=== PATIENT | female | born 1950 | race American Indian/Alaskan Native ===

== ENCOUNTER 2019-02-18 16:37 | Inpatient (IN) | payer MEDICARE, OTHER ==
[2019-02-18 17:54] LABS: ANION GAP 13.1; CHLORIDE,CL 98 mmol/L (101-111); SODIUM,NA 134 mmol/L (135-145)
--- NOTE | 2019-02-18 18:08 | EDM.PDOC ---
ED HPI GENERAL MEDICAL PROBLEM - General Chief Complaint: Lower Extremity Injury/Pain Stated Complaint: LEFT FOOT SWOLLEN Time Seen by Provider: 02/18/19 16:50 Source of Information: Reports: Patient, Family, RN, RN Notes Reviewed History Limitations: Reports: No Limitations - History of Present Illness INITIAL COMMENTS - FREE TEXT/NARRATIVE: patient presents to ER with family with complaint of swelling, redness, pain to the left lower leg from the knee to the toes. Patient states this has been progressing over the past 2 days. Patient states she is diabetic and has diabetic ulcers on the foot and legs. She states she has been doctoring for these, states she has been told that the ulcers are from stress. Patient denies any fever or chills. States she has had increased difficulty walking with the swelling and the pain of the foot and the leg. Onset: Today, Sudden Duration: Constant, Getting Worse Location: Reports: Lower Extremity, Left Left Foot Pain Score (Numeric/FACES): 5 - Related Data Allergies Allergy/AdvReac Type Severity Reaction Status Date / Time No Known Allergies Allergy Verified 11/17/15 12:49 Home Meds: Home Meds Aspirin [Adult Low Dose Aspirin EC] 81 mg PO DAILY 05/31/17 [History] Dextrose [Glucose] 4 tab PO ASDIRECTED PRN 05/31/17 [History] Lisinopril 5 mg PO DAILY 05/31/17 [History] Saxagliptin HCl [Onglyza] 5 mg PO DAILY 05/31/17 [History] Simvastatin [Zocor] 20 mg PO BEDTIME 05/31/17 [History] metFORMIN HCl [Metformin HCl] 1,000 mg PO BID 05/31/17 [History] Past Medical History HEENT History: Reports: None Cardiovascular History: Reports: High Cholesterol, Hypertension Respiratory History: Reports: None Gastrointestinal History: Reports: None Genitourinary History: Reports: None 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 Musculoskeletal History: Reports: Arthritis Neurological History: Reports: None Psychiatric History: Reports: None Endocrine/Metabolic History: Reports: Diabetes, Type II Hematologic History: Reports: None Immunologic History: Reports: None Oncologic (Cancer) History: Reports: None Dermatologic History: Reports: None - Infectious Disease History Infectious Disease History: Reports: Chicken Pox - Past Surgical History Head Surgeries/Procedures: Reports: None Musculoskeletal Surgical History: Reports: Carpal Tunnel Social & Family History - Tobacco Use Smoking Status *Q: Current Every Day Smoker Years of Tobacco use: 39 Packs/Tins Daily: 0.2 Second Hand Smoke Exposure: Yes - Caffeine Use Caffeine Use: Reports: Coffee - Recreational Drug Use Recreational Drug Use: No Review of Systems - Review of Systems Review Of Systems: Comprehensive ROS is negative, except as noted in HPI. ED EXAM, GENERAL - Physical Exam Exam: See Below Exam Limited By: No Limitations General Appearance: Alert, WD/WN, No Apparent Distress Eye Exam: Bilateral Eye: EOMI, Normal Inspection Ears: Normal External Exam, Hearing Grossly Normal Nose: Normal Inspection Throat/Mouth: Normal Inspection, Normal Voice, No Airway Compromise Head: Atraumatic, Normocephalic Neck: Normal Inspection, Supple, Non-Tender, Full Range of Motion Respiratory/Chest: No Respiratory Distress, No Accessory Muscle Use, Chest Non- Tender, Decreased Breath Sounds Cardiovascular: Normal Peripheral Pulses, Regular Rate, Rhythm, No Gallop, No JVD, No Murmur, No Rub Peripheral Pulses: 1+: Dorsalis Pedis (L), 2+: Radial (L), Radial (R), Dorsalis Pedis (R) GI/Abdominal: Normal Bowel Sounds, Soft, Non-Tender (Female) Exam: Deferred Rectal (Female) Exam: Deferred Back Exam: Normal Inspection, Decreased Range of Motion Extremities: Pedal Edema (eft foot), Joint Swelling (left ankle), Leg Pain ( left lower leg from knee to the toes), Limited Range of Motion (The lower leg), Increased Warmth (left lower leg), Redness (left lower leg) Neurological: Alert, Oriented, CN II-XII Intact, Normal Cognition Psychiatric: Normal Affect, Normal Mood Skin Exam: Warm, Erythema (left lower leg) Lymphatic: No Adenopathy Course - Vital Signs Last Recorded V/S: Last Vital Signs Temp 97.5 F 02/18/19 16:40 Pulse 73 02/18/19 16:40 Resp 18 02/18/19 16:40 BP 131/64 02/18/19 16:40 Pulse Ox 97 02/18/19 16:40 - Orders/Labs/Meds Orders: Active Orders 24 hr Category Date Time Status CULTURE BLOOD [BC] Stat Lab 02/18/19 17:22 Received CULTURE BLOOD [BC] Stat Lab 02/18/19 17:28 Received Blood Culture x2 Reflex Set [OM.PC] Stat Oth 02/18/19 17:12 Ordered Labs: Laboratory Tests 02/18/19 02/18/19 02/18/19 Range/Units 17:28 17:28 17:28 WBC 11.4 H (5.0-10.0) 10^3/uL RBC 4.96 (4.2-5.4) 10^6/uL Hgb 14.3 (12.0-16.0) g/dL Hct 42.1 (37.0-47.0) % MCV 84.9 (80-100) fL MCH 28.8 (27.0-34.0) pg MCHC 34.0 (33.0-35.0) g/dL Plt Count 235 (150-450) 10^3/uL Neut % (Auto) 74.9 (42.2-75.2) % Lymph % (Auto) 13.9 L (20.5-50.1) % [place] % (Auto) 10.5 H (2-8) % Eos % (Auto) 0.4 L (1.0-3.0) % Baso % (Auto) 0.3 (0.0-1.0) % Sodium 134 L (135-145) mmol/L Potassium 3.1 L (3.6-5.0) mmol/L Chloride 98 L (101-111) mmol/L Carbon Dioxide 26.0 (21.0-31.0) mmol/L Anion Gap 13.1 BUN 13 (7-18) mg/dL Creatinine 0.7 (0.6-1.3) mg/dL Est Cr Clr Drug Dosing TNP Estimated GFR (MDRD) > 60 BUN/Creatinine Ratio 18.57 Glucose 125 H (74-105) mg/dL Lactic Acid 1.2 (0.5-2.2) mmol/L Calcium 8.9 (8.4-10.2) mg/dl Total Bilirubin 0.7 (0.2-1.0) mg/dL AST 9 L (10-42) IU/L ALT 10 (10-60) IU/L Alkaline Phosphatase 56 (42-121) IU/L Total Protein 7.7 (6.7-8.2) g/dl Albumin 3.5 (3.2-5.5) g/dl Globulin 4.2 Albumin/Globulin Ratio 0.83 - Radiology Interpretation Free Text/Narrative:: left lower leg and foot x-rays: FINDINGS: Bones/joints: The bones are intact and normal in appearance. There is no evidence of acute or healing fracture. There is no bone destruction or periosteal reaction. There is moderately advanced osteoarthritis in the knee joint, especially in the medial and patellofemoral compartments. No knee joint effusion is identified. Soft tissues: There is diffuse soft tissue edema. No soft tissue gas or radiopaque foreign body is seen. There are tiny dystrophic calcifications in the soft tissues anterior to the tibia. IMPRESSION: 1. Diffuse soft tissue edema without evidence of soft tissue gas. No fracture or osteomyelitis. 2. Moderately advanced osteoarthritis of the left knee joint. Thank you for allowing us to participate in the care of your patient. Dictated and Authenticated by: Helga Huitron MD 02/18/2019 6:07 PM Central Time ([place] & [place]) FINDINGS: Bones/joints: The bones appear intact. There is no evidence of bone destruction or periosteal reaction. No fractures are identified. There is mild to moderate osteoarthritis of the 1st MTP joint with joint space narrowing and proliferative osteophyte formation. There are large plantar and posterior calcaneal spurs. Soft tissues: There is diffuse soft tissue edema. No soft tissue gas or radiopaque foreign body is identified. IMPRESSION: Diffuse soft tissue swelling. No evidence of fracture or osteomyelitis. Thank you for allowing us to participate in the care of your patient. Dictated and Authenticated by: Helga Huitron MD 02/18/2019 6:08 PM Central Time ([place] & [place]) See radiologist's report - Re-Assessments/Exams Free Text/Narrative Re-Assessment/Exam: 02/18/19 18:15 Patient case discussed with Dr. Bates who agreed to accept patient for inpatient admission. Departure - Departure Time of Disposition: 18:16 Disposition: Admitted As Inpatient 65 Condition: Fair Clinical Impression: Cellulitis Qualifiers: Site of cellulitis: extremity Site of cellulitis of extremity: lower extremity Laterality: left Qualified Code(s): L03.116 - Cellulitis of left lower limb - Discharge Information *PRESCRIPTION DRUG MONITORING PROGRAM REVIEWED*: No *COPY OF PRESCRIPTION DRUG MONITORING REPORT IN PATIENT JOSEPH: No Forms: ED Department Discharge Sepsis Event Note - Evaluation Sepsis Screening Result: No Definite Risk - Focused Exam Vital Signs: Vital Signs Temp Pulse Resp BP Pulse Ox 02/18/19 16:40 97.5 F 73 18 131/64 97 Date Exam was Performed: 02/18/19 Time Exam was Performed: 18:15 - My Orders Last 24 Hours: My Active Orders 02/18/19 17:12 Blood Culture x2 Reflex Set [OM.PC] Stat 02/18/19 17:22 CULTURE BLOOD [BC] Stat 02/18/19 17:28 CULTURE BLOOD [BC] Stat - Assessment/Plan Last 24 Hours: My Active Orders 02/18/19 17:12 Blood Culture x2 Reflex Set [OM.PC] Stat 02/18/19 17:22 CULTURE BLOOD [BC] Stat 02/18/19 17:28 CULTURE BLOOD [BC] Stat
--- NOTE | 2019-02-18 18:35 | PCM.HP ---
H&P History of Present Illness - General Date of Service: 02/18/19 Admit Problem/Dx: Admitted with: Left LE cellulitis Source of Information: Patient, Old Records History Limitations: Reports: No Limitations - History of Present Illness Initial Comments - Free Text/Narative: This is a 68 Y/O F with past Medical history of Diabetes II ( non-insulin Dependent), Hypertension, Dyslipidemia came to ER with ER with family with complaint of swelling, redness, pain to the left lower leg from the knee to the toes. Patient states this has been progressing over the past 2 days. Patient states she is diabetic and has diabetic ulcers on the foot and legs. Patient denies any fever or chills, dysuria. States she has had increased difficulty walking with the swelling and the pain of the foot and the leg. She had X-ray of her Left LE and has no sign of osteomyelitis or any abscess. She will be admitted for Cellulitis of Left LE Onset of Symptoms: Reports: Gradual Duration of Symptoms: Reports: Day(s): Location: Reports: Lower Extremity, Left Left Foot Pain Score (Numeric/FACES): 5 - Related Data Allergies/Adverse Reactions: Allergies Allergy/AdvReac Type Severity Reaction Status Date / Time No Known Allergies Allergy Verified 02/18/19 18:41 Home Medications: Home Meds Aspirin [Adult Low Dose Aspirin EC] 81 mg PO DAILY 05/31/17 [History] Dextrose [Glucose] 4 tab PO ASDIRECTED PRN 05/31/17 [History] Lisinopril 5 mg PO DAILY 05/31/17 [History] Saxagliptin HCl [Onglyza] 5 mg PO DAILY 05/31/17 [History] Simvastatin [Zocor] 20 mg PO BEDTIME 05/31/17 [History] metFORMIN HCl [Metformin HCl] 1,000 mg PO BID 05/31/17 [History] Acetaminophen [Pain Relief] 975 mg PO DAILY PRN 02/18/19 [History] Past Medical History HEENT History: Reports: None Cardiovascular History: Reports: High Cholesterol, Hypertension Respiratory History: Reports: None Gastrointestinal History: Reports: None Genitourinary History: Reports: None 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 Musculoskeletal History: Reports: Arthritis Neurological History: Reports: None Psychiatric History: Reports: None Endocrine/Metabolic History: Reports: Diabetes, Type II Hematologic History: Reports: None Immunologic History: Reports: None Oncologic (Cancer) History: Reports: None Dermatologic History: Reports: None - Infectious Disease History Infectious Disease History: Reports: Chicken Pox - Past Surgical History Head Surgeries/Procedures: Reports: None Musculoskeletal Surgical History: Reports: Carpal Tunnel Social & Family History - Tobacco Use Smoking Status *Q: Current Every Day Smoker Years of Tobacco use: 39 Packs/Tins Daily: 0.2 Second Hand Smoke Exposure: Yes - Caffeine Use Caffeine Use: Reports: Coffee - Recreational Drug Use Recreational Drug Use: No H&P Review of Systems - Review of Systems: Review Of Systems: See Below General: Denies: Fever, Chills, Weakness, Night Sweats, Weight Loss HEENT: Denies: Dysphasia, Headaches, Sinus Congestion, Sore Throat, Visual Changes Pulmonary: Denies: Shortness of Breath, Wheezing, Cough, Sputum Cardiovascular: Denies: Chest Pain, Edema, Lightheadedness Gastrointestinal: Denies: Abdominal Pain, Diarrhea, Nausea, Vomiting Genitourinary: Denies: Dysuria, Burning, Urgency, Flank Pain Musculoskeletal: Reports: Leg Pain (left), Foot Pain (left). Denies: Neck Pain , Shoulder Pain, Back Pain Skin: Reports: Erythema, Change in Color. Denies: Cyanosis, Jaundice, Bruising , Pruritis, Rash Psychiatric: Denies: Confusion, Anxiety, Agitation Neurological: Denies: Confusion, Dizziness, Tremors Hematologic/Lymphatic: Reports: No Symptoms Immunologic: Reports: No Symptoms Exam - Exam Exam: See Below - Vital Signs Vital Signs: Last Vital Signs Temp 36.4 C 02/18/19 16:40 Pulse 73 02/18/19 16:40 Resp 18 02/18/19 16:40 BP 131/64 02/18/19 16:40 Pulse Ox 97 02/18/19 16:40 - Exam Quality Assessment: DVT Prophylaxis. No: Supplemental Oxygen, Central Line/PICC , Urinary Catheter General: Alert, Oriented, Cooperative HEENT: Conjunctiva Clear, EOMI, Hearing Intact, Mucosa Moist & [place] Neck: Full Range of Motion. No: Lymphadenopathy, Thyromegaly Lungs: Clear to Auscultation, Normal Respiratory Effort. No: Crackles, Wheezing Cardiovascular: Regular Rate, Regular Rhythm, Normal S1, Normal S2 GI/Abdominal Exam: Normal Bowel Sounds, Soft, Non-Tender, No Organomegaly. No: Rigid, Rebound (Female) Exam: Deferred Rectal (Female) Exam: Deferred Back Exam: Normal Inspection Extremities: Normal Inspection, No Pedal Edema, Increased Warmth (to left LE ), Redness (Left LE) Skin: Warm, Dry, Intact Neurological: Cranial Nerves Intact, Reflexes Equal Bilateral Neuro Extensive - Mental Status: Alert, Oriented x3, Normal Mood/Affect, Normal Cognition, Memory Intact Neuro Extensive - Motor, Sensory, Reflexes: CN II-XII Intact Psychiatric: Alert, Normal Affect, Normal Mood - Patient Data Lab Results Last 24 hrs: Laboratory Results - last 24 hr 02/18/19 02/18/19 02/18/19 Range/Units 17:28 17:28 17:28 WBC 11.4 H (5.0-10.0) 10^3/uL RBC 4.96 (4.2-5.4) 10^6/uL Hgb 14.3 (12.0-16.0) g/dL Hct 42.1 (37.0-47.0) % MCV 84.9 (80-100) fL MCH 28.8 (27.0-34.0) pg MCHC 34.0 (33.0-35.0) g/dL Plt Count 235 (150-450) 10^3/uL Neut % (Auto) 74.9 (42.2-75.2) % Lymph % (Auto) 13.9 L (20.5-50.1) % [place] % (Auto) 10.5 H (2-8) % Eos % (Auto) 0.4 L (1.0-3.0) % Baso % (Auto) 0.3 (0.0-1.0) % Sodium 134 L (135-145) mmol/L Potassium 3.1 L (3.6-5.0) mmol/L Chloride 98 L (101-111) mmol/L Carbon Dioxide 26.0 (21.0-31.0) mmol/L Anion Gap 13.1 BUN 13 (7-18) mg/dL Creatinine 0.7 (0.6-1.3) mg/dL Est Cr Clr Drug Dosing TNP Estimated GFR (MDRD) > 60 BUN/Creatinine Ratio 18.57 Glucose 125 H (74-105) mg/dL Lactic Acid 1.2 (0.5-2.2) mmol/L Calcium 8.9 (8.4-10.2) mg/dl Total Bilirubin 0.7 (0.2-1.0) mg/dL AST 9 L (10-42) IU/L ALT 10 (10-60) IU/L Alkaline Phosphatase 56 (42-121) IU/L Total Protein 7.7 (6.7-8.2) g/dl Albumin 3.5 (3.2-5.5) g/dl Globulin 4.2 Albumin/Globulin Ratio 0.83 Result Diagrams: 02/18/19 17:28 02/18/19 17:28 - Problem List (1) Diabetes SNOMED Code(s): 43121901 ICD Code: E11.9 - TYPE 2 DIABETES MELLITUS WITHOUT COMPLICATIONS Status: Acute Current Visit: Yes (2) Hypertension SNOMED Code(s): 34376254 ICD Code: I10 - ESSENTIAL (PRIMARY) HYPERTENSION Status: Acute Current Visit: Yes (3) Cellulitis SNOMED Code(s): 654826135 ICD Code: L03.90 - CELLULITIS, UNSPECIFIED Status: Acute Current Visit: No Problem List Initiated/Reviewed/Updated: Yes Orders Last 24hrs: Active Orders 24 hr Category Date Time Status CULTURE BLOOD [BC] Stat Lab 02/18/19 17:22 Received CULTURE BLOOD [BC] Stat Lab 02/18/19 17:28 Received Blood Culture x2 Reflex Set [OM.PC] Stat Oth 02/18/19 17:12 Ordered Assessment/Plan Comment:: This is a 68 Y/O F with past Medical history of Diabetes II ( non-insulin Dependent), Hypertension, Dyslipidemia came to ER with ER with family with complaint of swelling, redness, pain to the left lower leg from the knee to the toes. Patient states this has been progressing over the past 2 days. Patient states she is diabetic and has diabetic ulcers on the foot and legs. Patient denies any fever or chills, dysuria. States she has had increased difficulty walking with the swelling and the pain of the foot and the leg. She had X-ray of her Left LE and has no sign of osteomyelitis or any abscess. She will be admitted for Cellulitis of Left LE Impression and Plan: 1. Left LE cellulitis: Pt presented with erythema and pain of left LE ( pi is daibetic) -Will start her on IV Zosyn and IV Vancomycin -Consult pharmacy to dose Vancomycin -CBC in AM 2. Hypertension: Will continue Lisinopril at 5 mg daily 3. Diabetes II ( Non-Insulin Dependent): She is on metformin at 100 mg BID and Saxagliptin at 5 mg daily -Will continue BS cheack 4 times a day -Will cover with sliding Insulin 4. Dyslipidemia: Continue Simvastatin at 20 mg daily DVT prophylaxis: Start Enoxaparin Code Status: Discussed with Pt and she is: DNR/DNI
[2019-02-18] MEDS ORDERED: Docusate Sodium 100 MG Cap PO PRN (18:54)
[2019-02-18] MEDS ORDERED: DEXTROSE PO PRN (18:59)
[2019-02-18] MEDS ORDERED: [UNRECOGNIZED DRUG - OTHER] PO PRN (18:59)
[2019-02-18] MEDS ORDERED: Acetaminophen 325 MG Tab PO PRN (18:59)
[2019-02-18] MEDS ORDERED: Piperacillin/Tazobactam 3.375 GM in Sodium Chloride 0.9% 100 ML IV SCH (19:15)
[2019-02-18] MEDS ORDERED: Insulin NPH HUM/REG Insulin HM 100 UNIT/ML 3 ML Vial SQ ONE (19:26)
[2019-02-18] MEDS: Enoxaparin 40 MG/0.4 ML Syringe SUBCUT SCH (21:00)
[2019-02-18] MEDS ORDERED: Insulin Isophane NPH, Human 100 Units/ML 3 ML Vial SQ SCH ×2 (21:00)
[2019-02-18] MEDS: Simvastatin 10 MG Tab PO SCH (21:01)
[2019-02-18] MEDS: Insulin Lispro 100 Units/ML 3 ML Vial SUBCUT SCH (22:16)
[2019-02-19] MEDS: Piperacillin/Tazobactam 3.375 GM in Sodium Chloride 0.9% 100 ML IV SCH ×4 (02:06→20:04)
[2019-02-19 07:05] LABS: ANION GAP 13.1; CHLORIDE,CL 100 mmol/L (101-111); SODIUM,NA 134 mmol/L (135-145)
[2019-02-19] MEDS: Insulin Lispro 100 Units/ML 3 ML Vial SUBCUT SCH ×4 (08:09→21:12)
[2019-02-19] MEDS: metFORMIN 500 MG Tab PO SCH ×2 (08:25→17:23)
[2019-02-19] MEDS: Lisinopril 5 MG Tab PO SCH (08:25)
[2019-02-19] MEDS: Aspirin 81 MG Tab.EC PO SCH (08:26)
[2019-02-19] MEDS ORDERED: Potassium Chloride 10 MEQ Tab.ER PO ONE (09:13)
--- NOTE | 2019-02-19 10:47 | PCM.PN ---
- General Info Date of Service: 02/19/19 Admission Dx/Problem (Free Text): Admitted with: Left LE cellulitis , weakness and left LE Pain Subjective Update: Pt was seen in room today doing well, No nausea or vomiting, LE pain is much better and warmth and redness to Left LE is improving. Her appetite is good and has no increased shortness of breath Functional Status: Reports: Pain Controlled, Tolerating Diet, Ambulating, Urinating - Review of Systems General: Reports: Weakness, Appetite (good). Denies: Fever, Chills HEENT: Denies: Headaches, Sinus Congestion, Sore Throat, Rhinitis, Visual Changes Pulmonary: Denies: Shortness of Breath, Cough, Sputum, Wheezing Cardiovascular: Denies: Chest Pain, Dyspnea on Exertion, Edema, Lightheadedness Gastrointestinal: Denies: Abdominal Pain, Diarrhea, Nausea, Vomiting Genitourinary: Denies: Dysuria, Frequency, Burning, Urgency, Flank Pain Musculoskeletal: Reports: Leg Pain. Denies: Neck Pain, Shoulder Pain, Joint Swelling Skin: Denies: Cyanosis, Jaundice, Bruising, Rash Neurological: Reports: No Symptoms Psychiatric: Reports: No Symptoms - Patient Data Vitals - Most Recent: Last Vital Signs Temp 37.4 C 02/19/19 08:00 Pulse 81 02/19/19 08:00 Resp 20 02/19/19 08:00 BP 141/69 H 02/19/19 08:25 Pulse Ox 97 02/19/19 08:00 Weight - Most Recent: 72.575 kg I&O - Last 24 Hours: Intake & Output 02/18/19 02/19/19 02/19/19 22:59 06:59 14:59 Intake Total 334 897 92 Output Total 300 Balance 334 597 92 Lab Results Last 24 Hours: Laboratory Results - last 24 hr 02/18/19 02/18/19 02/18/19 Range/Units 17:28 17:28 17:28 WBC 11.4 H (5.0-10.0) 10^3/uL RBC 4.96 (4.2-5.4) 10^6/uL Hgb 14.3 (12.0-16.0) g/dL Hct 42.1 (37.0-47.0) % MCV 84.9 (80-100) fL MCH 28.8 (27.0-34.0) pg MCHC 34.0 (33.0-35.0) g/dL Plt Count 235 (150-450) 10^3/uL Neut % (Auto) 74.9 (42.2-75.2) % Lymph % (Auto) 13.9 L (20.5-50.1) % [place] % (Auto) 10.5 H (2-8) % Eos % (Auto) 0.4 L (1.0-3.0) % Baso % (Auto) 0.3 (0.0-1.0) % Sodium 134 L (135-145) mmol/L Potassium 3.1 L (3.6-5.0) mmol/L Chloride 98 L (101-111) mmol/L Carbon Dioxide 26.0 (21.0-31.0) mmol/L Anion Gap 13.1 BUN 13 (7-18) mg/dL Creatinine 0.7 (0.6-1.3) mg/dL Est Cr Clr Drug Dosing TNP Estimated GFR (MDRD) > 60 BUN/Creatinine Ratio 18.57 Glucose 125 H (74-105) mg/dL POC Glucose (70-105) mg/dl Lactic Acid 1.2 (0.5-2.2) mmol/L Calcium 8.9 (8.4-10.2) mg/dl Total Bilirubin 0.7 (0.2-1.0) mg/dL AST 9 L (10-42) IU/L ALT 10 (10-60) IU/L Alkaline Phosphatase 56 (42-121) IU/L Total Protein 7.7 (6.7-8.2) g/dl Albumin 3.5 (3.2-5.5) g/dl Globulin 4.2 Albumin/Globulin Ratio 0.83 02/18/19 02/19/19 02/19/19 Range/Units 21:13 06:25 07:59 WBC (5.0-10.0) 10^3/uL RBC (4.2-5.4) 10^6/uL Hgb (12.0-16.0) g/dL Hct (37.0-47.0) % MCV (80-100) fL MCH (27.0-34.0) pg MCHC (33.0-35.0) g/dL Plt Count (150-450) 10^3/uL Neut % (Auto) (42.2-75.2) % Lymph % (Auto) (20.5-50.1) % [place] % (Auto) (2-8) % Eos % (Auto) (1.0-3.0) % Baso % (Auto) (0.0-1.0) % Sodium 134 L (135-145) mmol/L Potassium 3.1 L (3.6-5.0) mmol/L Chloride 100 L (101-111) mmol/L Carbon Dioxide 24.0 (21.0-31.0) mmol/L Anion Gap 13.1 BUN 11 (7-18) mg/dL Creatinine 0.7 (0.6-1.3) mg/dL Est Cr Clr Drug Dosing 65.50 Estimated GFR (MDRD) > 60 BUN/Creatinine Ratio Glucose 149 H (74-105) mg/dL POC Glucose 149 H 145 H (70-105) mg/dl Lactic Acid (0.5-2.2) mmol/L Calcium 8.5 (8.4-10.2) mg/dl Total Bilirubin (0.2-1.0) mg/dL AST (10-42) IU/L ALT (10-60) IU/L Alkaline Phosphatase (42-121) IU/L Total Protein (6.7-8.2) g/dl Albumin (3.2-5.5) g/dl Globulin Albumin/Globulin Ratio Med Orders - Current: Current Medications Acetaminophen (Tylenol) 650 mg PO Q4H PRN PRN Reason: Pain (mild 1-3 )/fever Acetaminophen (Tylenol) 975 mg PO DAILY PRN PRN Reason: Pain Aspirin (Halfprin) 81 mg PO DAILY [facility] Last Admin: 02/19/19 08:26 Dose: 81 mg Docusate Sodium (Colace) 100 mg PO DAILY PRN PRN Reason: Constipation Enoxaparin Sodium (Lovenox) 40 mg SUBCUT BEDTIME [facility] Last Admin: 02/18/19 21:00 Dose: 40 mg Vancomycin HCl 1 gm/ Premix 200 mls @ 133.333 mls/hr IV Q24H [facility] Last Admin: 02/18/19 20:59 Dose: 133.333 mls/hr Piperacillin Sod/Tazobactam (Sod 3.375 gm/ Sodium Chloride) 100 mls @ 200 mls/ hr IV Q6H [facility] Last Infusion: 02/19/19 09:30 Dose: Infused Insulin Human Lispro (Humalog) 0 unit SUBCUT WITHMEALSANDBED [facility]; Protocol Last Admin: 02/19/19 08:09 Dose: Not Given Lisinopril (Prinivil) 5 mg PO DAILY [facility] Last Admin: 02/19/19 08:25 Dose: 5 mg Metformin HCl (Glucophage) 1,000 mg PO BIDMEALS [facility] Last Admin: 02/19/19 08:25 Dose: 1,000 mg Non-Formulary Medication (Dextrose [Glucose]) 4 tab PO ASDIRECTED PRN PRN Reason: Blood Glucose Non-Formulary Medication (Saxagliptin Hcl [Onglyza]) 5 mg PO DAILY [facility] Simvastatin (Zocor) 20 mg PO BEDTIME [facility] Last Admin: 02/18/19 21:01 Dose: Not Given Vancomycin HCl (Pharmacy To Dose - Vancomycin) 1 dose .XX ASDIRECTED [facility] Discontinued Medications Piperacillin Sod/Tazobactam (Sod 3.375 gm/ Sodium Chloride) 100 mls @ 200 mls/ hr IV Q6H [facility] Last Admin: 02/18/19 19:34 Dose: 200 mls/hr Insulin Human NPH (Humulin N) 1 unit SQ QID [facility]; Protocol Insulin Human NPH (Humulin N) 0 unit SQ QIDACANDBED [facility]; Protocol Insulin NPH Beef/Pork (Humulin 70-30) 0 unit SQ QIDACANDBED ONE; Protocol Stop: 02/18/19 19:27 Last Admin: 02/18/19 19:59 Dose: Not Given Potassium Chloride (Klor-Con 10) 40 meq PO ONETIME ONE Stop: 02/19/19 09:14 Last Admin: 02/19/19 09:28 Dose: 40 meq - Exam Quality Assessment: DVT Prophylaxis. No: Supplemental Oxygen, Urine Catheter General: Alert, Oriented, Cooperative, No Acute Distress HEENT: Pupils Equal, Pupils Reactive, Mucous Membr. Moist/[place] Neck: No JVD, No Thyromegaly. No: Lymphadenopathy Lungs: Clear to Auscultation, Normal Respiratory Effort. No: Crackles, Wheezing Cardiovascular: Regular Rate, Regular Rhythm, Murmurs GI/Abdominal Exam: Normal Bowel Sounds, Soft, Non-Tender, No Organomegaly, No Distention (Female) Exam: Deferred Back Exam: Normal Inspection, Full Range of Motion Extremities: Normal Inspection, No Pedal Edema Skin: Warm, Dry, Intact Wound/Incisions: Erythema Improving Neurological: No New Focal Deficit Psy/Mental Status: Alert, Normal Affect, Normal Mood Sepsis Event Note - Evaluation Sepsis Screening Result: No Definite Risk - Focused Exam Vital Signs: Vital Signs Temp Pulse Resp BP BP Pulse Ox 02/19/19 08:25 141/69 H 02/19/19 08:00 37.4 C 81 20 141/69 H 97 Date Exam was Performed: 02/19/19 Time Exam was Performed: 10:41 - Problem List & Annotations (1) Diabetes SNOMED Code(s): 24769068 Code(s): E11.9 - TYPE 2 DIABETES MELLITUS WITHOUT COMPLICATIONS Status: Acute Current Visit: Yes (2) Hypertension SNOMED Code(s): 93351440 Code(s): I10 - ESSENTIAL (PRIMARY) HYPERTENSION Status: Acute Current Visit: Yes (3) Cellulitis SNOMED Code(s): 671524035 Code(s): L03.90 - CELLULITIS, UNSPECIFIED Status: Acute Current Visit: No - Problem List Review Problem List Initiated/Reviewed/Updated: Yes - My Orders Last 24 Hours: My Active Orders 02/18/19 18:54 Patient Status [ADT] Routine Ambulate [RC] ASDIRECTED Up With Assistance [RC] ASDIRECTED Up ad Ting [RC] ASDIRECTED Up to Chair [RC] ASDIRECTED Vital Signs [RC] 00,04,08,12,16,20 Acetaminophen [Tylenol] 650 mg PO Q4H PRN Docusate Sodium [Colace] 100 mg PO DAILY PRN DVT/VTE Prophylaxis Reflex [OM.PC] Routine 02/18/19 18:56 Oxygen Therapy [RC] PRN Pulse Oximetry [RC] PRN 02/18/19 18:57 Antiembolic Devices [RC] 09,21 VTE/DVT Education [RC] PER UNIT ROUTINE Antiembolic Hose [OM.PC] Per Unit Routine 02/18/19 18:59 Acetaminophen [Tylenol] 975 mg PO DAILY PRN Dextrose [Glucose] 4 tab PO ASDIRECTED PRN Code Status [Resuscitation Status] Routine 02/18/19 19:01 Blood Glucose Check, Bedside [RC] QIDACANDBED 02/18/19 19:15 Pharmacy to Dose - Vancomycin 1 dose .XX ASDIRECTED 02/18/19 21:00 Enoxaparin [Lovenox] 40 mg SUBCUT BEDTIME Insulin Lispro [HumaLOG] See Protocol SUBCUT WITHMEALSANDBED Simvastatin [Zocor] 20 mg PO BEDTIME Vancomycin/Water for INJ (PEG) [Vancomycin 1 GM/200 ML Premix] 1 gm Premix Bag 1 bag IV Q24H 02/18/19 Dinner Consistent Carbohydrate Diet [DIET] 02/19/19 02:00 Piperacillin/Tazobactam [Zosyn] 3.375 gm Sodium Chloride 0.9% [Normal Saline] 100 ml IV Q6H 02/19/19 08:00 metFORMIN [Glucophage] 1,000 mg PO BIDMEALS 02/19/19 09:00 Aspirin [Halfprin] 81 mg PO DAILY Saxagliptin HCl [Onglyza] 5 mg PO DAILY lisinopriL [Prinivil] 5 mg PO DAILY 02/20/19 06:00 BASIC METABOLIC PANEL,BMP [CHEM] Routine 02/20/19 20:30 VANCOMYCIN TROUGH [CHEM] Timed - Plan Plan:: This is a 68 Y/O F with past Medical history of Diabetes II ( non-insulin Dependent), Hypertension, Dyslipidemia came to ER with ER with family with complaint of swelling, redness, pain to the left lower leg from the knee to the toes. Patient states this has been progressing over the past 2 days. Patient states she is diabetic and has diabetic ulcers on the foot and legs. Patient denies any fever or chills, dysuria. States she has had increased difficulty walking with the swelling and the pain of the foot and the leg. She had X-ray of her Left LE and has no sign of osteomyelitis or any abscess. She will be admitted for Cellulitis of Left LE Impression and Plan: 1. Left LE cellulitis: Pt presented with erythema and pain of left LE ( pi is daibetic) -Will continue her on IV Zosyn and IV Vancomycin -pharmacy to dose Vancomycin and check level 2. Hypertension: Will continue Lisinopril at 5 mg daily 3. Diabetes II ( Non-Insulin Dependent): She is on metformin at 100 mg BID and Saxagliptin at 5 mg daily -Will continue BS cheack 4 times a day -Will cover with sliding Insulin 4. Dyslipidemia: Continue Simvastatin at 20 mg daily 5. Hypokalemia: Her potassium was low and will give potassium chloride 40 meq PO X 1 dose -Recheck in AM DVT prophylaxis: continue Enoxaparin Code Status: Discussed with Pt and she is: DNR/DNI
[2019-02-19] MEDS: Enoxaparin 40 MG/0.4 ML Syringe SUBCUT SCH (21:11)
[2019-02-19] MEDS: Simvastatin 10 MG Tab PO SCH (21:11)
[2019-02-20] MEDS: Piperacillin/Tazobactam 3.375 GM in Sodium Chloride 0.9% 100 ML IV SCH ×4 (02:27→18:17)
[2019-02-20 07:08] LABS: ANION GAP 13.3; CHLORIDE,CL 103 mmol/L (101-111); SODIUM,NA 136 mmol/L (135-145)
[2019-02-20] MEDS: Insulin Lispro 100 Units/ML 3 ML Vial SUBCUT SCH ×4 (08:11→21:13)
[2019-02-20] MEDS: Lisinopril 5 MG Tab PO SCH (08:44)
[2019-02-20] MEDS: Aspirin 81 MG Tab.EC PO SCH (08:44)
[2019-02-20] MEDS: metFORMIN 500 MG Tab PO SCH ×2 (08:44→18:16)
[2019-02-20] MEDS: Non-Formulary Medication 1 Each (Saxagliptin Hcl [Onglyza] 5 MG) PO SCH (09:52)
[2019-02-20] MEDS ORDERED: Potassium Chloride 10 MEQ Tab.ER PO ONE (10:00)
[2019-02-20] MEDS: ALOGLIPTIN 25 MG PO SCH (10:26)
[2019-02-20] MEDS: TRIAMCINOLONE ACETONIDE 0.1% TOP SCH (10:27)
--- NOTE | 2019-02-20 10:57 | PCM.PN ---
- General Info Date of Service: 02/20/19 Admission Dx/Problem (Free Text): Admitted with: Left LE cellulitis , weakness and left LE Pain Subjective Update: Pt was seen in room today doing well, No nausea or vomiting, LE pain is much better and warmth and redness to Left LE is improving. Her appetite is good and has no increased shortness of breath Functional Status: Reports: Pain Controlled, Tolerating Diet, Ambulating, Urinating - Review of Systems General: Reports: Weakness, Appetite (good). Denies: Fever, Chills HEENT: Denies: Headaches, Sinus Congestion, Sore Throat, Visual Changes Pulmonary: Denies: Shortness of Breath, Cough, Sputum, Wheezing Cardiovascular: Denies: Chest Pain, Dyspnea on Exertion, Lightheadedness Gastrointestinal: Denies: Abdominal Pain, Diarrhea, Nausea, Vomiting Genitourinary: Denies: Dysuria, Frequency, Burning, Flank Pain Musculoskeletal: Reports: Foot Pain. Denies: Neck Pain, Shoulder Pain Skin: Denies: Cyanosis, Jaundice, Bruising, Pruritis, Rash Neurological: Denies: Confusion, Numbness, Tremors Psychiatric: Reports: No Symptoms - Patient Data Vitals - Most Recent: Last Vital Signs Temp 37.3 C 02/20/19 07:52 Pulse 89 02/20/19 07:52 Resp 20 02/20/19 07:52 BP 149/82 H 02/20/19 08:44 Pulse Ox 97 02/20/19 07:52 Weight - Most Recent: 72.575 kg I&O - Last 24 Hours: Intake & Output 02/19/19 02/20/19 02/20/19 22:59 06:59 14:59 Intake Total 540 197 120 Balance 540 197 120 Lab Results Last 24 Hours: Laboratory Results - last 24 hr 02/19/19 02/19/19 02/19/19 Range/Units 11:47 17:07 21:10 Sodium (135-145) mmol/L Potassium (3.6-5.0) mmol/L Chloride (101-111) mmol/L Carbon Dioxide (21.0-31.0) mmol/L Anion Gap BUN (7-18) mg/dL Creatinine (0.6-1.3) mg/dL Est Cr Clr Drug Dosing mL/min Estimated GFR (MDRD) Glucose (74-105) mg/dL POC Glucose 139 H 121 H 123 H (70-105) mg/dl Calcium (8.4-10.2) mg/dl 02/20/19 02/20/19 Range/Units 06:00 08:02 Sodium 136 (135-145) mmol/L Potassium 3.3 L (3.6-5.0) mmol/L Chloride 103 (101-111) mmol/L Carbon Dioxide 23.0 (21.0-31.0) mmol/L Anion Gap 13.3 BUN 16 (7-18) mg/dL Creatinine 0.6 (0.6-1.3) mg/dL Est Cr Clr Drug Dosing 76.42 mL/min Estimated GFR (MDRD) > 60 Glucose 172 H (74-105) mg/dL POC Glucose 140 H (70-105) mg/dl Calcium 8.3 L (8.4-10.2) mg/dl Jose Results Last 24 Hours: Microbiology 02/18/19 17:28 Aerobic Blood Culture - Preliminary Blood - Venous - Lab Draw NO GROWTH AFTER 1 DAY Anaerobic Blood Culture - Preliminary NO GROWTH AFTER 1 DAY 02/18/19 17:22 Aerobic Blood Culture - Preliminary Blood - Venous NO GROWTH AFTER 1 DAY Anaerobic Blood Culture - Preliminary NO GROWTH AFTER 1 DAY Med Orders - Current: Current Medications Acetaminophen (Tylenol) 650 mg PO Q4H PRN PRN Reason: Pain (mild 1-3 )/fever Aspirin (Halfprin) 81 mg PO DAILY [facility] Last Admin: 02/20/19 08:44 Dose: 81 mg Docusate Sodium (Colace) 100 mg PO DAILY PRN PRN Reason: Constipation Enoxaparin Sodium (Lovenox) 40 mg SUBCUT BEDTIME [facility] Last Admin: 02/19/19 21:11 Dose: 40 mg Vancomycin HCl 1 gm/ Premix 200 mls @ 133.333 mls/hr IV Q24H [facility] Last Admin: 02/19/19 21:13 Dose: 133.333 mls/hr Piperacillin Sod/Tazobactam (Sod 3.375 gm/ Sodium Chloride) 100 mls @ 200 mls/ hr IV Q6HR [facility] Insulin Human Lispro (Humalog) 0 unit SUBCUT WITHMEALSANDBED [facility]; Protocol Last Admin: 02/20/19 08:11 Dose: Not Given Lisinopril (Prinivil) 5 mg PO DAILY [facility] Last Admin: 02/20/19 08:44 Dose: 5 mg Metformin HCl (Glucophage) 1,000 mg PO BIDMEALS [facility] Last Admin: 02/20/19 08:44 Dose: 1,000 mg Alogliptin 25 Mg Tab (Own Med) 25 mg PO DAILY [facility] Last Admin: 02/20/19 10:26 Dose: 25 mg Triamcinolone Acetonide 0.1% Oint Own Med 0 each TOP BID [facility] Last Admin: 02/20/19 10:27 Dose: 1 each Simvastatin (Zocor) 20 mg PO BEDTIME [facility] Last Admin: 02/19/19 21:11 Dose: 20 mg Vancomycin HCl (Pharmacy To Dose - Vancomycin) 1 dose .XX ASDIRECTED [facility] Discontinued Medications Acetaminophen (Tylenol) 975 mg PO DAILY PRN PRN Reason: Pain Last Admin: 02/19/19 12:05 Dose: 975 mg Piperacillin Sod/Tazobactam (Sod 3.375 gm/ Sodium Chloride) 100 mls @ 200 mls/ hr IV Q6H [facility] Last Admin: 02/18/19 19:34 Dose: 200 mls/hr Piperacillin Sod/Tazobactam (Sod 3.375 gm/ Sodium Chloride) 100 mls @ 200 mls/ hr IV Q6H [facility] Last Infusion: 02/20/19 09:46 Dose: Infused Insulin Human NPH (Humulin N) 1 unit SQ QID [facility]; Protocol Insulin Human NPH (Humulin N) 0 unit SQ QIDACANDBED [facility]; Protocol Insulin NPH Beef/Pork (Humulin 70-30) 0 unit SQ QIDACANDBED ONE; Protocol Stop: 02/18/19 19:27 Last Admin: 02/18/19 19:59 Dose: Not Given Non-Formulary Medication (Dextrose [Glucose]) 4 tab PO ASDIRECTED PRN PRN Reason: Blood Glucose Non-Formulary Medication (Saxagliptin Hcl [Onglyza]) 5 mg PO DAILY [facility] Last Admin: 02/20/19 09:52 Dose: Not Given Potassium Chloride (Klor-Con 10) 40 meq PO ONETIME ONE Stop: 02/19/19 09:14 Last Admin: 02/19/19 09:28 Dose: 40 meq Potassium Chloride (Klor-Con 10) 40 meq PO ONETIME ONE Stop: 02/20/19 10:01 Last Admin: 02/20/19 10:27 Dose: 40 meq - Exam Quality Assessment: DVT Prophylaxis. No: Supplemental Oxygen, Central Line/PICC , Urine Catheter General: Alert, Oriented, Cooperative, No Acute Distress HEENT: Pupils Equal, EOMI, Mucous Membr. Moist/[place] Neck: No JVD, No Thyromegaly. No: Lymphadenopathy Lungs: Clear to Auscultation, Normal Respiratory Effort. No: Crackles, Wheezing Cardiovascular: Regular Rate, Regular Rhythm, No Murmurs GI/Abdominal Exam: Normal Bowel Sounds, Non-Tender, No Organomegaly, No Distention. No: Rigid, Rebound (Female) Exam: Deferred Back Exam: Normal Inspection Extremities: Normal Inspection, No Pedal Edema Skin: Warm, Dry, Intact Neurological: No New Focal Deficit Psy/Mental Status: Alert, Normal Affect, Normal Mood Sepsis Event Note - Evaluation Sepsis Screening Result: No Definite Risk - Focused Exam Vital Signs: Vital Signs Temp Pulse Resp BP BP BP Pulse Ox 02/20/19 08:44 149/82 H 02/20/19 07:52 37.3 C 89 20 149/82 H 97 02/19/19 23:17 36.6 C 88 19 124/57 L 95 Date Exam was Performed: 02/20/19 Time Exam was Performed: 10:53 - Problem List & Annotations (1) Diabetes SNOMED Code(s): 80539943 Code(s): E11.9 - TYPE 2 DIABETES MELLITUS WITHOUT COMPLICATIONS Status: Acute Current Visit: Yes (2) Hypertension SNOMED Code(s): 22956994 Code(s): I10 - ESSENTIAL (PRIMARY) HYPERTENSION Status: Acute Current Visit: Yes (3) Cellulitis SNOMED Code(s): 979422800 Code(s): L03.90 - CELLULITIS, UNSPECIFIED Status: Acute Current Visit: No - Problem List Review Problem List Initiated/Reviewed/Updated: Yes - My Orders Last 24 Hours: My Active Orders 02/20/19 09:56 PT Evaluation and Treatment [CONS] Routine 02/20/19 09:57 OT Evaluation and Treatment [CONS] Routine 02/20/19 10:00 Alogliptin Benzoate [Alogliptin] 25 mg PO DAILY Patient's Own Medication [Ptom] 0 each TOP BID 02/20/19 13:30 Piperacillin/Tazobactam [Zosyn] 3.375 gm Sodium Chloride 0.9% [Normal Saline] 100 ml IV Q6HR 02/20/19 20:30 VANCOMYCIN TROUGH [CHEM] Timed 02/21/19 06:00 POTASSIUM,K [CHEM] Routine - Plan Plan:: This is a 68 Y/O F with past Medical history of Diabetes II ( non-insulin Dependent), Hypertension, Dyslipidemia came to ER with ER with family with complaint of swelling, redness, pain to the left lower leg from the knee to the toes. Patient states this has been progressing over the past 2 days. Patient states she is diabetic and has diabetic ulcers on the foot and legs. Patient denies any fever or chills, dysuria. States she has had increased difficulty walking with the swelling and the pain of the foot and the leg. She had X-ray of her Left LE and has no sign of osteomyelitis or any abscess. She will be admitted for Cellulitis of Left LE Impression and Plan: 1. Left LE cellulitis: Pt presented with erythema and pain of left LE ( pt is diabetic) -Will continue her on IV Zosyn and IV Vancomycin -pharmacy to dose Vancomycin and check level 2. Hypertension: Will continue Lisinopril at 5 mg daily 3. Diabetes II ( Non-Insulin Dependent): She is on metformin at 100 mg BID and Saxagliptin at 5 mg daily -Will continue BS cheack 4 times a day -Will cover with sliding Insulin 4. Dyslipidemia: Continue Simvastatin at 20 mg daily 5. Hypokalemia: Her potassium was low and will give potassium chloride 40 meq PO X 1 dose -Recheck is acceptable 6. Weakness: Pt is feeling weak and not moving much, will place PT/OT consult for evaluation and treatment DVT prophylaxis: continue Enoxaparin Code Status: Discussed with Pt and she is: DNR/DNI
[2019-02-20] MEDS: Simvastatin 10 MG Tab PO SCH (21:12)
[2019-02-20] MEDS: Enoxaparin 40 MG/0.4 ML Syringe SUBCUT SCH (21:12)
[2019-02-21] MEDS: TRIAMCINOLONE ACETONIDE 0.1% TOP SCH ×3 (00:37→20:39)
[2019-02-21] MEDS: Piperacillin/Tazobactam 3.375 GM in Sodium Chloride 0.9% 100 ML IV SCH ×5 (01:06→23:53)
[2019-02-21] MEDS: Acetaminophen 325 MG Tab PO PRN ×2 (05:49→17:51)
[2019-02-21] MEDS: ALOGLIPTIN 25 MG PO SCH (09:26)
[2019-02-21] MEDS: metFORMIN 500 MG Tab PO SCH ×2 (09:27→17:46)
[2019-02-21] MEDS: Lisinopril 5 MG Tab PO SCH (09:27)
[2019-02-21] MEDS: Aspirin 81 MG Tab.EC PO SCH (09:28)
[2019-02-21] MEDS: Insulin Lispro 100 Units/ML 3 ML Vial SUBCUT SCH ×4 (09:29→21:10)
--- NOTE | 2019-02-21 13:36 | PCM.PN ---
- General Info Date of Service: 02/21/19 Admission Dx/Problem (Free Text): Admitted with: Left LE cellulitis , weakness and left LE Pain Subjective Update: Pt was seen in room today doing well, No nausea or vomiting, LE pain is much better and warmth and redness to Left LE has improved significantly . Her appetite is good and has no increased shortness of breath Functional Status: Reports: Pain Controlled, Tolerating Diet, Ambulating, Urinating - Review of Systems General: Reports: Weakness, Appetite (good). Denies: Fever, Chills HEENT: Denies: Ear Pain, Headaches, Sinus Congestion, Sore Throat, Visual Changes Pulmonary: Denies: Shortness of Breath, Cough, Sputum, Wheezing Cardiovascular: Denies: Chest Pain, Dyspnea on Exertion, Lightheadedness Gastrointestinal: Denies: Abdominal Pain, Diarrhea, Nausea, Vomiting Genitourinary: Denies: Dysuria, Frequency, Burning, Urgency, Flank Pain Musculoskeletal: Reports: Foot Pain. Denies: Neck Pain, Hand Pain, Joint Swelling Skin: Denies: Cyanosis, Bruising, Pruritis, Rash Neurological: Denies: Confusion, Numbness, Tingling, Tremors Psychiatric: Reports: No Symptoms - Patient Data Vitals - Most Recent: Last Vital Signs Temp 36.4 C 02/21/19 08:42 Pulse 78 02/21/19 08:42 Resp 20 02/21/19 08:42 BP 128/65 02/21/19 09:27 Pulse Ox 98 02/21/19 08:42 Weight - Most Recent: 72.575 kg I&O - Last 24 Hours: Intake & Output 02/20/19 02/21/19 02/21/19 22:59 06:59 14:59 Intake Total 654 Output Total 300 600 Balance -300 54 Lab Results Last 24 Hours: Laboratory Results - last 24 hr 02/20/19 02/20/19 02/20/19 Range/Units 17:08 20:30 21:10 Potassium (3.6-5.0) mmol/L POC Glucose 105 133 H (70-105) mg/dl Vancomycin Trough < 3.5 L (10-15) ug/ml 02/21/19 02/21/19 02/21/19 Range/Units 06:00 07:53 11:35 Potassium 3.7 (3.6-5.0) mmol/L POC Glucose 89 113 H (70-105) mg/dl Vancomycin Trough (10-15) ug/ml Jose Results Last 24 Hours: Microbiology 02/18/19 17:28 Aerobic Blood Culture - Preliminary Blood - Venous - Lab Draw NO GROWTH AFTER 2 DAYS Anaerobic Blood Culture - Preliminary NO GROWTH AFTER 2 DAYS 02/18/19 17:22 Aerobic Blood Culture - Preliminary Blood - Venous NO GROWTH AFTER 2 DAYS Anaerobic Blood Culture - Preliminary NO GROWTH AFTER 2 DAYS Med Orders - Current: Current Medications Acetaminophen (Tylenol) 650 mg PO Q4H PRN PRN Reason: Pain (mild 1-3 )/fever Last Admin: 02/21/19 05:49 Dose: 650 mg Aspirin (Halfprin) 81 mg PO DAILY [facility] Last Admin: 02/21/19 09:28 Dose: 81 mg Docusate Sodium (Colace) 100 mg PO DAILY PRN PRN Reason: Constipation Enoxaparin Sodium (Lovenox) 40 mg SUBCUT BEDTIME [facility] Last Admin: 02/20/19 21:12 Dose: 40 mg Piperacillin Sod/Tazobactam (Sod 3.375 gm/ Sodium Chloride) 100 mls @ 200 mls/ hr IV Q6HR [facility] Last Admin: 02/21/19 05:36 Dose: 200 mls/hr Vancomycin HCl 1 gm/ Premix 200 mls @ 133.333 mls/hr IV Q12H [facility] Last Admin: 02/21/19 12:01 Dose: 133.333 mls/hr Insulin Human Lispro (Humalog) 0 unit SUBCUT WITHMEALSANDBED [facility]; Protocol Last Admin: 02/21/19 09:29 Dose: Not Given Lisinopril (Prinivil) 5 mg PO DAILY [facility] Last Admin: 02/21/19 09:27 Dose: 5 mg Metformin HCl (Glucophage) 1,000 mg PO BIDMEALS [facility] Last Admin: 02/21/19 09:27 Dose: 1,000 mg Alogliptin 25 Mg Tab (Own Med) 25 mg PO DAILY [facility] Last Admin: 02/21/19 09:26 Dose: 25 mg Triamcinolone Acetonide 0.1% Oint Own Med 0 each TOP BID [facility] Last Admin: 02/21/19 09:30 Dose: 1 each Simvastatin (Zocor) 20 mg PO BEDTIME [facility] Last Admin: 02/20/19 21:12 Dose: 20 mg Vancomycin HCl (Pharmacy To Dose - Vancomycin) 1 dose .XX ASDIRECTED [facility] Discontinued Medications Acetaminophen (Tylenol) 975 mg PO DAILY PRN PRN Reason: Pain Last Admin: 02/19/19 12:05 Dose: 975 mg Piperacillin Sod/Tazobactam (Sod 3.375 gm/ Sodium Chloride) 100 mls @ 200 mls/ hr IV Q6H [facility] Last Admin: 02/18/19 19:34 Dose: 200 mls/hr Vancomycin HCl 1 gm/ Premix 200 mls @ 133.333 mls/hr IV Q24H [facility] Last Admin: 02/21/19 08:43 Dose: Not Given Piperacillin Sod/Tazobactam (Sod 3.375 gm/ Sodium Chloride) 100 mls @ 200 mls/ hr IV Q6H [facility] Last Infusion: 02/20/19 09:46 Dose: Infused Insulin Human NPH (Humulin N) 1 unit SQ QID [facility]; Protocol Insulin Human NPH (Humulin N) 0 unit SQ QIDACANDBED [facility]; Protocol Insulin NPH Beef/Pork (Humulin 70-30) 0 unit SQ QIDACANDBED ONE; Protocol Stop: 02/18/19 19:27 Last Admin: 02/18/19 19:59 Dose: Not Given Non-Formulary Medication (Dextrose [Glucose]) 4 tab PO ASDIRECTED PRN PRN Reason: Blood Glucose Non-Formulary Medication (Saxagliptin Hcl [Onglyza]) 5 mg PO DAILY [facility] Last Admin: 02/20/19 09:52 Dose: Not Given Potassium Chloride (Klor-Con 10) 40 meq PO ONETIME ONE Stop: 02/19/19 09:14 Last Admin: 02/19/19 09:28 Dose: 40 meq Potassium Chloride (Klor-Con 10) 40 meq PO ONETIME ONE Stop: 02/20/19 10:01 Last Admin: 02/20/19 10:27 Dose: 40 meq - Exam Quality Assessment: DVT Prophylaxis. No: Supplemental Oxygen, Central Line/PICC , Urine Catheter General: Alert, Oriented, Cooperative, No Acute Distress HEENT: Pupils Equal, EOMI, Mucous Membr. Moist/[place] Neck: No JVD, No Thyromegaly Lungs: Clear to Auscultation, Normal Respiratory Effort GI/Abdominal Exam: Normal Bowel Sounds, Non-Tender, No Organomegaly, No Distention (Female) Exam: Deferred Back Exam: Normal Inspection Extremities: Normal Inspection, No Pedal Edema Skin: Warm, Dry, Intact Neurological: No New Focal Deficit Psy/Mental Status: Alert, Normal Affect, Normal Mood Sepsis Event Note - Evaluation Sepsis Screening Result: No Definite Risk - Focused Exam Vital Signs: Vital Signs Temp Pulse Resp BP BP Pulse Ox 02/21/19 09:27 128/65 02/21/19 08:42 36.4 C 78 20 128/65 98 Date Exam was Performed: 02/21/19 Time Exam was Performed: 13:32 - Problem List & Annotations (1) Diabetes SNOMED Code(s): 91740313 Code(s): E11.9 - TYPE 2 DIABETES MELLITUS WITHOUT COMPLICATIONS Status: Acute Current Visit: Yes (2) Hypertension SNOMED Code(s): 46941343 Code(s): I10 - ESSENTIAL (PRIMARY) HYPERTENSION Status: Acute Current Visit: Yes (3) Cellulitis SNOMED Code(s): 331440518 Code(s): L03.90 - CELLULITIS, UNSPECIFIED Status: Acute Current Visit: No - Problem List Review Problem List Initiated/Reviewed/Updated: Yes - My Orders Last 24 Hours: My Active Orders 02/20/19 13:30 Piperacillin/Tazobactam [Zosyn] 3.375 gm Sodium Chloride 0.9% [Normal Saline] 100 ml IV Q6HR 02/20/19 22:00 Vancomycin/Water for INJ (PEG) [Vancomycin 1 GM/200 ML Premix] 1 gm Premix Bag 1 bag IV Q12H - Plan Plan:: This is a 68 Y/O F with past Medical history of Diabetes II ( non-insulin Dependent), Hypertension, Dyslipidemia came to ER with ER with family with complaint of swelling, redness, pain to the left lower leg from the knee to the toes. Patient states this has been progressing over the past 2 days. Patient states she is diabetic and has diabetic ulcers on the foot and legs. Patient denies any fever or chills, dysuria. States she has had increased difficulty walking with the swelling and the pain of the foot and the leg. She had X-ray of her Left LE and has no sign of osteomyelitis or any abscess. She will be admitted for Cellulitis of Left LE Impression and Plan: 1. Left LE cellulitis: Pt presented with erythema and pain of left LE ( pt is diabetic) -Will continue her on IV Zosyn and IV Vancomycin -pharmacy to dose Vancomycin and check level -Pt will be going home tomorrow 2. Hypertension: Will continue Lisinopril at 5 mg daily 3. Diabetes II ( Non-Insulin Dependent): She is on metformin at 100 mg BID and Saxagliptin at 5 mg daily -Will continue BS cheack 4 times a day -Will cover with sliding Insulin 4. Dyslipidemia: Continue Simvastatin at 20 mg daily 5. Hypokalemia: Her potassium was low but acceptable after the supplemental dose -Recheck is acceptable 6. Weakness: Pt is feeling weak and not moving much, pt was seen by PT/OT t DVT prophylaxis: continue Enoxaparin Code Status: Discussed with Pt and she is: DNR/DNI
[2019-02-21] MEDS: Simvastatin 10 MG Tab PO SCH (20:37)
[2019-02-21] MEDS: Enoxaparin 40 MG/0.4 ML Syringe SUBCUT SCH (20:38)
[2019-02-22] MEDS: Piperacillin/Tazobactam 3.375 GM in Sodium Chloride 0.9% 100 ML IV SCH ×2 (05:58→12:07)
[2019-02-22] MEDS: Acetaminophen 325 MG Tab PO PRN (07:14)
[2019-02-22] MEDS: Lisinopril 5 MG Tab PO SCH (08:30)
[2019-02-22] MEDS: ALOGLIPTIN 25 MG PO SCH (08:30)
[2019-02-22] MEDS: Aspirin 81 MG Tab.EC PO SCH (08:31)
[2019-02-22] MEDS: metFORMIN 500 MG Tab PO SCH (08:31)
[2019-02-22] MEDS: Insulin Lispro 100 Units/ML 3 ML Vial SUBCUT SCH ×2 (08:32→12:16)
[2019-02-22] MEDS: TRIAMCINOLONE ACETONIDE 0.1% TOP SCH (08:33)
--- NOTE | 2019-02-22 09:59 | PCM.DCSUM1 ---
Discharge Summary - Hospital Course Free Text/Narrative:: This is a 68 Y/O F with past Medical history of Diabetes II ( non-insulin Dependent), Hypertension, Dyslipidemia came to ER with ER with family with complaint of swelling, redness, pain to the left lower leg from the knee to the toes. Patient states this has been progressing over the past 2 days. Patient states she is diabetic and has diabetic ulcers on the foot and legs. Patient denies any fever or chills, dysuria. States she has had increased difficulty walking with the swelling and the pain of the foot and the leg. She had X-ray of her Left LE and has no sign of osteomyelitis or any abscess. She will be admitted for Cellulitis of Left LE. She was treated with IV Vancomycin and Zosyn. She was also seen by PT/OT and she did well. Today she is doing well and will be able to go home. She is also advised to Follow with her PMD on ( 02/23/19) or Wednesday ( 02/24/19) and if not possible in these 2 days then Must PMD on Wednesday ( 02/27/19) She will go home on Augmentin 875 BID X 7 days and Doxycycline 100 mg BID X 7 days - Discharge Data Discharge Date: 02/22/19 Discharge Disposition: Home, Self-Care 01 Condition: Stable - Referral to Home Health Primary Care Physician: [facility] - Discharge Diagnosis/Problem(s) (1) Diabetes SNOMED Code(s): 49167763 ICD Code: E11.9 - TYPE 2 DIABETES MELLITUS WITHOUT COMPLICATIONS Status: Acute Current Visit: Yes Qualifiers: Diabetes mellitus type: type 2 (2) Hypertension SNOMED Code(s): 38565566 ICD Code: I10 - ESSENTIAL (PRIMARY) HYPERTENSION Status: Acute Current Visit: Yes (3) Cellulitis SNOMED Code(s): 531152335 ICD Code: L03.90 - CELLULITIS, UNSPECIFIED Status: Acute Current Visit: No - Patient Summary/Data Consults: Consultations 02/20/19 09:56 PT Evaluation and Treatment [CONS] Routine 02/20/19 09:57 OT Evaluation and Treatment [CONS] Routine - Patient Instructions Diet: Heart Healthy Diet Activity: As Tolerated Showering/Bathing: May Shower Notify Provider of: Increased Pain, Swelling and Redness Other/Special Instructions: This is a 68 Y/O F with past Medical history of Diabetes II ( non-insulin Dependent), Hypertension, Dyslipidemia came to ER with ER with family with complaint of swelling, redness, pain to the left lower leg from the knee to the toes. Patient states this has been progressing over the past 2 days. Patient states she is diabetic and has diabetic ulcers on the foot and legs. Patient denies any fever or chills, dysuria. States she has had increased difficulty walking with the swelling and the pain of the foot and the leg. She had X-ray of her Left LE and has no sign of osteomyelitis or any abscess. She will be admitted for Cellulitis of Left LE. She was treated with IV Vancomycin and Zosyn. She was also seen by PT/OT and she did well. Today she is doing well and will be able to go home. She is also advised to Follow with her PMD on ( 02/23/19) or Wednesday ( 02/24/19) and if not possible in these 2 days then Must PMD on Wednesday ( 02/27/19). She will go home on Augmentin 875 BID X 7 days and Doxycycline 100 mg BID X 7 days - Discharge Plan *PRESCRIPTION DRUG MONITORING PROGRAM REVIEWED*: No *COPY OF PRESCRIPTION DRUG MONITORING REPORT IN PATIENT JOSEPH: No Prescriptions/Med Rec: Amoxicillin/Clavulanate K [Augmentin 875-125 MG] 1 tab PO BID #14 tablet Doxycycline [Vibramycin] 100 mg PO BID #14 cap Home Medications: Home Meds Aspirin [Adult Low Dose Aspirin EC] 81 mg PO DAILY 05/31/17 [History] Dextrose [Glucose] 4 tab PO ASDIRECTED PRN 05/31/17 [History] Lisinopril 5 mg PO DAILY 05/31/17 [History] Simvastatin [Zocor] 20 mg PO BEDTIME 05/31/17 [History] metFORMIN HCl [Metformin HCl] 1,000 mg PO BID 05/31/17 [History] Acetaminophen [Pain Relief] 975 mg PO DAILY PRN 02/18/19 [History] Alogliptin Benzoate [Alogliptin] 25 mg PO DAILY 02/19/19 [History] Triamcinolone Acetonide [Triamcinolone Acetonide 0.1% Oint] 453.6 gm TOP BID [History] Amoxicillin/Clavulanate K [Augmentin 875-125 MG] 1 tab PO BID #14 tablet [Rx] Doxycycline [Vibramycin] 100 mg PO BID #14 cap 02/22/19 [Rx] Forms: ED Department Discharge Referrals: PCP,Marvinobtain [Family Provider] - - Discharge Summary/Plan Comment DC Time >30 min.: Yes Discharge Summary/Plan Comment: This is a 68 Y/O F with past Medical history of Diabetes II ( non-insulin Dependent), Hypertension, Dyslipidemia came to ER with ER with family with complaint of swelling, redness, pain to the left lower leg from the knee to the toes. Patient states this has been progressing over the past 2 days. Patient states she is diabetic and has diabetic ulcers on the foot and legs. Patient denies any fever or chills, dysuria. States she has had increased difficulty walking with the swelling and the pain of the foot and the leg. She had X-ray of her Left LE and has no sign of osteomyelitis or any abscess. She will be admitted for Cellulitis of Left LE Impression and Plan: 1. Left LE cellulitis: Pt presented with erythema and pain of left LE ( pt is diabetic) -She was on IV Zosyn and IV Vancomycin -Pt will be going home today and will start Augmentin 875 mg PO BID X 7 days and Doxycline 100 mg bID X7 days 2. Hypertension: Will continue Lisinopril at 5 mg daily 3. Diabetes II ( Non-Insulin Dependent):Will continue metformin at 100 mg BID and Saxagliptin at 5 mg daily 4. Dyslipidemia: Continue Simvastatin at 20 mg daily 5. Hypokalemia: Her potassium was low but acceptable after the supplemental dose -Recheck is acceptable 6. Weakness: Pt is feeling better and walking, pt was seen by PT/OT - General Info Admission Dx/Problem (Free Text: Admitted with: Left LE cellulitis , weakness and left LE Pain Subjective Update: Pt was seen in room today doing well, No nausea or vomiting, LE pain is much better and warmth and redness to Left LE has improved significantly Her appetite is good and has no increased shortness of breath Functional Status: Reports: Pain Controlled, Tolerating Diet, Ambulating, Urinating - Review of Systems General: Reports: Weakness, Appetite (good). Denies: Fever, Chills HEENT: Denies: Sinus Congestion, Sore Throat, Visual Changes Pulmonary: Denies: Shortness of Breath, Cough, Sputum, Wheezing Cardiovascular: Reports: Edema. Denies: Chest Pain, Lightheadedness Gastrointestinal: Denies: Abdominal Pain, Diarrhea, Nausea, Vomiting Genitourinary: Denies: Dysuria, Frequency, Burning, Urgency Musculoskeletal: Reports: Foot Pain. Denies: Neck Pain, Joint Swelling Skin: Denies: Cyanosis, Jaundice, Bruising, Pruritis, Rash Neurological: Denies: Confusion, Headache, Numbness Psychiatric: Denies: Confusion - Patient Data Vitals - Most Recent: Last Vital Signs Temp 36.7 C 02/22/19 08:13 Pulse 68 02/22/19 08:13 Resp 20 02/22/19 08:13 BP 137/72 02/22/19 08:30 Pulse Ox 97 02/22/19 08:13 Weight - Most Recent: 72.575 kg I&O - Last 24 hours: Intake & Output 02/21/19 02/22/19 02/22/19 22:59 06:59 14:59 Intake Total 910 296 100 Output Total 400 Balance 510 296 100 Lab Results - Last 24 hrs: Laboratory Results - last 24 hr 02/21/19 02/21/19 02/21/19 Range/Units 11:35 16:56 20:57 POC Glucose 113 H 85 91 (70-105) mg/dl Vancomycin Trough (10-15) ug/ml 02/22/19 02/22/19 Range/Units 07:52 08:23 POC Glucose 83 (70-105) mg/dl Vancomycin Trough 12.0 (10-15) ug/ml [facility]NA Results - Last 24 hrs: Microbiology 02/18/19 17:28 Aerobic Blood Culture - Preliminary Blood - Venous - Lab Draw NO GROWTH AFTER 3 DAYS Anaerobic Blood Culture - Preliminary NO GROWTH AFTER 3 DAYS 02/18/19 17:22 Aerobic Blood Culture - Preliminary Blood - Venous NO GROWTH AFTER 3 DAYS Anaerobic Blood Culture - Preliminary NO GROWTH AFTER 3 DAYS Med Orders - Current: Current Medications Acetaminophen (Tylenol) 650 mg PO Q4H PRN PRN Reason: Pain (mild 1-3 )/fever Last Admin: 02/22/19 07:14 Dose: 650 mg Aspirin (Halfprin) 81 mg PO DAILY [facility] Last Admin: 02/22/19 08:31 Dose: 81 mg Docusate Sodium (Colace) 100 mg PO DAILY PRN PRN Reason: Constipation Enoxaparin Sodium (Lovenox) 40 mg SUBCUT BEDTIME [facility] Last Admin: 02/21/19 20:38 Dose: 40 mg Piperacillin Sod/Tazobactam (Sod 3.375 gm/ Sodium Chloride) 100 mls @ 200 mls/ hr IV Q6HR [facility] Last Admin: 02/22/19 05:58 Dose: 200 mls/hr Vancomycin HCl 1 gm/ Premix 200 mls @ 133.333 mls/hr IV Q12H [facility] Last Admin: 02/21/19 21:27 Dose: 133.333 mls/hr Insulin Human Lispro (Humalog) 0 unit SUBCUT WITHMEALSANDBED [facility]; Protocol Last Admin: 02/22/19 08:32 Dose: Not Given Lisinopril (Prinivil) 5 mg PO DAILY [facility] Last Admin: 02/22/19 08:30 Dose: 5 mg Metformin HCl (Glucophage) 1,000 mg PO BIDMEALS [facility] Last Admin: 02/22/19 08:31 Dose: 1,000 mg Alogliptin 25 Mg Tab (Own Med) 25 mg PO DAILY [facility] Last Admin: 02/22/19 08:30 Dose: 25 mg Triamcinolone Acetonide 0.1% Oint Own Med 0 each TOP BID [facility] Last Admin: 02/22/19 08:33 Dose: Not Given Simvastatin (Zocor) 20 mg PO BEDTIME [facility] Last Admin: 02/21/19 20:37 Dose: 20 mg Vancomycin HCl (Pharmacy To Dose - Vancomycin) 1 dose .XX ASDIRECTED [facility] Discontinued Medications Acetaminophen (Tylenol) 975 mg PO DAILY PRN PRN Reason: Pain Last Admin: 02/19/19 12:05 Dose: 975 mg Piperacillin Sod/Tazobactam (Sod 3.375 gm/ Sodium Chloride) 100 mls @ 200 mls/ hr IV Q6H [facility] Last Admin: 02/18/19 19:34 Dose: 200 mls/hr Vancomycin HCl 1 gm/ Premix 200 mls @ 133.333 mls/hr IV Q24H [facility] Last Admin: 02/21/19 08:43 Dose: Not Given Piperacillin Sod/Tazobactam (Sod 3.375 gm/ Sodium Chloride) 100 mls @ 200 mls/ hr IV Q6H [facility] Last Infusion: 02/20/19 09:46 Dose: Infused Insulin Human NPH (Humulin N) 1 unit SQ QID [facility]; Protocol Insulin Human NPH (Humulin N) 0 unit SQ QIDACANDBED [facility]; Protocol Insulin NPH Beef/Pork (Humulin 70-30) 0 unit SQ QIDACANDBED ONE; Protocol Stop: 02/18/19 19:27 Last Admin: 02/18/19 19:59 Dose: Not Given Non-Formulary Medication (Dextrose [Glucose]) 4 tab PO ASDIRECTED PRN PRN Reason: Blood Glucose Non-Formulary Medication (Saxagliptin Hcl [Onglyza]) 5 mg PO DAILY [facility] Last Admin: 02/20/19 09:52 Dose: Not Given Potassium Chloride (Klor-Con 10) 40 meq PO ONETIME ONE Stop: 02/19/19 09:14 Last Admin: 02/19/19 09:28 Dose: 40 meq Potassium Chloride (Klor-Con 10) 40 meq PO ONETIME ONE Stop: 02/20/19 10:01 Last Admin: 02/20/19 10:27 Dose: 40 meq - Exam Quality Assessment: Reports: DVT Prophylaxis. Denies: Supplemental Oxygen, Central Line/PICC, Urine Catheter General: Reports: Alert, Oriented, Cooperative, No Acute Distress HEENT: Reports: Pupils Equal, Pupils Reactive, EOMI, Mucous Membr. Moist/[place] Neck: Reports: No JVD, No Thyromegaly Lungs: Reports: Clear to Auscultation, Normal Respiratory Effort Cardiovascular: Reports: Regular Rate, Regular Rhythm, Murmurs GI/Abdominal Exam: Normal Bowel Sounds, Soft, Non-Tender, No Distention (Female) Exam: Deferred Rectal (Female) Exam: Deferred Back Exam: Reports: Normal Inspection Extremities: Normal Inspection, No Pedal Edema Skin: Reports: Warm, Dry, Intact Neurological: Reports: No New Focal Deficit Psy/Mental Status: Reports: Alert, Normal Affect, Normal Mood
[2019-02-22] MEDS ORDERED: Doxycycline 100 MG Cap ONE (10:56)
[2019-02-22] MEDS ORDERED: Amoxicillin/Clavulanate K 875-125 MG Tab ONE (10:56)
[2019-02-22 12:56] VITALS: BP 136/71; PULSE 69
[2019-02-22] MEDS ORDERED: Amoxicillin/Clavulanate K 875-125 MG Tab PO ONE (14:34)
[2019-02-22] MEDS ORDERED: Doxycycline 100 MG Cap PO ONE (14:34)
== END 2019-02-22 14:35 | disposition home or self-care (01) | DRG 638 ==
LOC: DL.ED 16:37 → DL.MS 18:27 → UNDOADMIN 18:27 → DL.MS 18:54
PROVIDERS: ADMIT Internal Medicine Nephrology; ATTEND Internal Medicine Nephrology
DX: E11.628 Type 2 diabetes mellitus with other skin complications (principal); E11.9 Type 2 diabetes mellitus without complications; L03.116 Cellulitis of left lower limb; E11.621 Type 2 diabetes mellitus with foot ulcer; L97.509 Non-pressure chronic ulcer of other part of unspecified foot with unspecified severity; F17.210 Nicotine dependence, cigarettes, uncomplicated; I10 Essential (primary) hypertension; E78.5 Hyperlipidemia, unspecified; Z79.01 Long term (current) use of anticoagulants; E87.6 Hypokalemia; Z66 Do not resuscitate; M19.90 Unspecified osteoarthritis, unspecified site; E78.00 Pure hypercholesterolemia, unspecified; F17.200 Nicotine dependence, unspecified, uncomplicated; R53.1 Weakness; Z79.82 Long term (current) use of aspirin; Z79.84 Long term (current) use of oral hypoglycemic drugs; Z79.899 Other long term (current) drug therapy; Z23 Encounter for immunization
CPT/HCPCS: 36415; 73590-LT; 73620-LT; 80048; 80053; 80202; 82962; 83605; 84132; 85025; 87040; 90653; 97162-GP; 97165-GO; 99284; 99284-25; A9270-GY; G0008; J1650; J1815; J2543; J3370; J7050

== ENCOUNTER 2023-01-31 10:42 | Emergency (ER) | payer MEDICARE, OTHER ==
[2023-01-31] MEDS ORDERED: Diphtheria,Pertussis(Acell),Tetanus Vaccine 0.5 ML Syringe IM ONE (10:59)
[2023-01-31] MEDS ORDERED: Lidocaine 1% 5 ML VIAL INJECT ONE (10:59)
[2023-01-31] MEDS ORDERED: Bacitracin Oint 1 GM U/D Packet TOP ONE (10:59)
[2023-01-31 11:02] VITALS: BP 189/105; PULSE 84
== END 2023-01-31 12:38 | disposition home or self-care (01) ==
LOC: DL.ED 10:42
DX: S01.81XA Laceration without foreign body of other part of head, initial encounter (principal); Z23 Encounter for immunization; I10 Essential (primary) hypertension; E11.9 Type 2 diabetes mellitus without complications; E78.00 Pure hypercholesterolemia, unspecified; F17.200 Nicotine dependence, unspecified, uncomplicated; Z88.8 Allergy status to other drugs, medicaments and biological substances; Z79.82 Long term (current) use of aspirin; Z79.899 Other long term (current) drug therapy; Z79.84 Long term (current) use of oral hypoglycemic drugs; W00.0XXA Fall on same level due to ice and snow, initial encounter
CPT/HCPCS: 12011; 70450; 90471; 90715; 99282; 99283-25; A9270-GY; J3490

== ENCOUNTER 2023-09-26 16:47 | Emergency (ER) | payer MEDICARE ==
[2023-09-26 17:03] VITALS: BP 140/87; PULSE 81
[2023-09-26] MEDS: traMADol 50 MG Tab PO ONE (17:07)
[2023-09-26] MEDS: Lidocaine 2% Viscous Solution 15 ML UD PO ONE (17:08)
[2023-09-26] MEDS: Amoxicillin/Clavulanate K 875-125 MG Tab PO ONE (17:40)
[2023-09-26] MEDS: Take Home: Lidocaine 2% Viscous Solution 15 ML UD, 2 Cup Pack PO ONE (17:42)
[2023-09-26] MEDS: Take Home: traMADol 50 MG, 4 Tab Pack PO ONE (17:42)
== END 2023-09-26 17:45 | disposition home or self-care (01) ==
LOC: DL.ED 16:47
DX: S02.5XXA Fracture of tooth (traumatic), initial encounter for closed fracture (principal); I10 Essential (primary) hypertension; E78.00 Pure hypercholesterolemia, unspecified; E11.9 Type 2 diabetes mellitus without complications; Z79.899 Other long term (current) drug therapy; Z79.84 Long term (current) use of oral hypoglycemic drugs; Z79.82 Long term (current) use of aspirin; Z91.048 Other nonmedicinal substance allergy status; Z88.8 Allergy status to other drugs, medicaments and biological substances
CPT/HCPCS: 99282; 99283; A9270